=== PATIENT | female | born 1990 | race Caucasian/White ===

== ENCOUNTER 2017-03-24 19:57 | Emergency (ER) | payer OTHER ==
--- NOTE | 2017-03-24 21:43 | ER Document Report ---
ED GI/ - General Chief Complaint: Pelvic Pain Stated Complaint: ABDOMINAL PAIN Time Seen by Provider: 03/24/17 21:34 Notes: Patient is a 26 year old female that comes to the ED for chief complaint of lower abdominal/pelvic/groin pain. She states that has been developing over 2 weeks. She has a clear discharge, no dysuria, no bleeding, she states it hurts to walk. She denies trauma. She denies fever chills, nausea or vomiting, flank pain. LMP irregular because she breast-feeds, delivery was 7 months ago. Her has had a vasectomy. She denies sexual activity outside of with her . She denies any complaints otherwise. TRAVEL OUTSIDE OF THE [place] IN LAST 30 DAYS: No - Related Data Allergies/Adverse Reactions: No Known Allergies Allergy (Unverified 03/24/17 20:00) Past Medical History - General Information source: Patient - Social History Smoking Status: Never Smoker Frequency of alcohol use: None Drug Abuse: None Lives with: Family Family History: Reviewed & Not Pertinent Patient has suicidal ideation: No Patient has homicidal ideation: No - Medical History Medical History: Negative Renal/ Medical History: Denies: Hx Peritoneal Dialysis Surgical Hx: Negative - Immunizations Immunizations up to date: Yes Hx Diphtheria, Pertussis, Tetanus Vaccination: Yes Review of Systems - Review of Systems Constitutional: No symptoms reported EENT: No symptoms reported Cardiovascular: No symptoms reported Respiratory: No symptoms reported Gastrointestinal: See HPI Genitourinary: See HPI Female Genitourinary: See HPI Musculoskeletal: No symptoms reported Skin: No symptoms reported Hematologic/Lymphatic: No symptoms reported Neurological/Psychological: No symptoms reported Physical Exam - Vital signs Vitals: Temp Pulse Resp BP Pulse Ox 97.8 F 76 16 124/64 100 03/24/17 23:55 03/24/17 23:55 03/24/17 23:55 03/24/17 23:55 03/24/17 23:55 Interpretation: Normal - General General appearance: Appears well, Alert In distress: None - HEENT Head: Normocephalic, Atraumatic Eyes: Normal Pupils: PERRL - Respiratory Respiratory status: No respiratory distress Chest status: Nontender Breath sounds: Normal Chest palpation: Normal - Cardiovascular Rhythm: Regular Heart sounds: Normal auscultation Murmur: No - Abdominal Inspection: Normal Distension: No distension Bowel sounds: Normal Tenderness: Tender - Mild suprapubic tenderness on exam, otherwise nontender abdomen. No: Guarding, Rebound Organomegaly: No organomegaly - Genitourinary External exam: Normal Speculum exam: Cervix closed, Vaginal discharge - Moderate amount of whitish yellowish vaginal discharge, no lesions, no bleeding, unremarkable exam otherwise. No: Cervix open Vaginal bleeding: None Bimanuel exam: No: Cervical motion tender Notes: Exam performed with HARVEY Christensen at bedside - Back Back: Normal, Nontender - Extremities General upper extremity: Normal inspection, Nontender, Normal color, Normal ROM , Normal temperature General lower extremity: Normal inspection, Nontender, Normal color, Normal ROM , Normal temperature, Normal weight bearing. No: Niharika's sign - Neurological Neuro grossly intact: Yes Cognition: Normal Orientation: AAOx4 [place] Coma Scale Eye Opening: Spontaneous [place] Coma Scale Verbal: Oriented [place] Coma Scale Motor: Obeys Commands Patricia Coma Scale Total: 15 Speech: Normal Motor strength normal: LUE, RUE, LLE, RLE Sensory: Normal - Psychological Associated symptoms: Normal affect, Normal mood - Skin Skin Temperature: Warm Skin Moisture: Dry Skin Color: Normal Course - Re-evaluation Re-evalutation: Patient with suprapubic pain on examination. She has erythematous cervix with some purulent discharge, wet mount with 2+ white blood cells but otherwise unremarkable, gonorrhea and Chlamydia are pending. Remaining abdomen unremarkable, patient well-appearing, no tenderness on exam suggesting abscess, ovarian cyst, or surgical abdomen. Urinalysis indicating urinary tract infection. Discussed results with patient, patient will be treated for pelvic infection/ urinary tract infection, patient to be contacted if her results are positive by 8:00 the next morning, she left her phone number to confirm, discussed return precautions with patient. Gonorrhea and Chlamydia are negative. - Vital Signs Vital signs: Temp Pulse Resp BP Pulse Ox 97.8 F 76 16 124/64 100 03/24/17 23:55 03/24/17 23:55 03/24/17 23:55 03/24/17 23:55 03/24/17 23:55 - Laboratory Laboratory results interpreted by me: 03/24/17 22:02 Ur Leukocyte Esterase LARGE H Discharge - Discharge Clinical Impression: Lower abdominal pain, Pelvic pain Condition: Stable Disposition: HOME, SELF-CARE Additional Instructions: Your workup and examination indicates a pelvic infection. You have been covered for this. Take antibiotics as prescribed to completion. Follow-up with primary care. Return to the emergency department for any concerning or worsening symptoms including vomiting, fever of 100.4 or greater, severe pain, or any other concerning symptoms. Prescriptions: Doxycycline Hyclate 100 mg PO BID #14 capsule
[2017-03-24 22:35] LABS: APPEARANCE,URINE SLIGHTLY-CLOUDY; BILIRUBIN,URINE NEGATIVE (NEGATIVE); COLOR,URINE YELLOW; GLUCOSE, URINE NEGATIVE (NEGATIVE); KETONES,URINE NEGATIVE (NEGATIVE); LEUKOCYTE ESTERASE,URINE LARGE (NEGATIVE); NITRITE,URINE NEGATIVE (NEGATIVE); PROTEIN,URINE NEGATIVE (NEGATIVE); URINE SPECIFIC GRAVITY 1.016; UROBILINOGEN,URINE NEGATIVE mg/dL (<2.0)
[2017-03-24 22:36] LABS: T.VAGINALIS (WET MOUNT) NO TRICHOMONAS SEEN; WBCS (WET MOUNT) 2+ WBCS SEEN; YEAST (WET MOUNT) NO YEAST SEEN
[2017-03-24] MEDS ORDERED: CEFTRIAXONE INJ 250 MG VIAL IM ONE (23:24)
[2017-03-24] MEDS ORDERED: DOXYCYCLINE HYCLATE 100 MG TABLET PO ONE (23:24)
[2017-03-24 23:56] VITALS: BP 124/64
[2017-03-24 23:57] LABS: CHLAM PCR NOT DETECTED (NOT DETECT); GON PCR NOT DETECTED (NOT DETECT)
== END 2017-03-24 23:56 | disposition home or self-care (01) ==
LOC: ER 19:57
DX: N39.0 Urinary tract infection, site not specified (principal); R10.2 Pelvic and perineal pain; N89.8 Other specified noninflammatory disorders of vagina; N92.6 Irregular menstruation, unspecified
CPT/HCPCS: 99284; 96372; 87210; 81025; 81001; 87491; 87591; J0696